=== PATIENT | female | born 1985 | race Caucasian/White ===

== ENCOUNTER 2017-06-11 19:47 | Emergency (ER) | payer BC ==
[2017-06-11 20:20] LABS: #Eosinphils 0.2 thou/uL (0.0-0.7); #Monocytes 0.4 thou/uL (0.11-0.59); #Neutrophils 3.3 thou/uL (1.40-6.50); %Basophils 0.6 % (0.0-1.0); %Eosinophils 2.6 % (0.0-10.0); %Lymphocytes 42.8 % (21.0-51.0); %Monocytes 6.3 % (0.0-10.0); %Neutrophils 47.6 % (42.0-75.0); Hemoglobin 13.5 g/dL (12.0-16.0); Mean Corpuscular HGB CONC 33.8 g/dL (32.0-36.0); Mean Corpuscular Volume 88.9 fl (81.0-99.0); Mean Platelet Volume 7.1 fL (7.4-10.4); Platelet Count 213 thou/uL (130-400); RBC Distribution Width 12.3 % (11.5-14.5); Red Blood Cell (RBC) Count 4.48 mill/uL (4.20-5.40)
--- NOTE | 2017-06-11 20:38 | RAD ---
PORTABLE CHEST: 06/11/17 HISTORY: Chest pain. Lung navarro are clear. Heart and mediastinum appear normal. IMPRESSION: Unremarkable chest. POS: [facility]
[2017-06-11 20:41] LABS: ALT (SGPT) 8 U/L (8-55); AST (SGOT) 13 U/L (5-34); Albumin 4.6 g/dL (3.5-5.0); Alkaline Phosphatase 52 U/L (40-150); Anion Gap 12 mmol/L (10-20); BUN (Urea Nitrogen) 12 mg/dL (7.0-18.7); Bilirubin, Total 0.5 mg/dL (0.2-1.2); CK (CPK) 86 U/L (29-168); Calc. Creatinine Clearance 0 mL/min (70-130); Carbon Dioxide 27 mmol/L (22-29); Chloride 102 mmol/L (98-107); Estimated GFR-MDRD 67; Globulin 3.3 g/dL (2.4-3.5); Glucose 115 mg/dL (70-105); Potassium 3.4 mmol/L (3.5-5.1); Protein, Total 7.9 g/dL (6.0-8.3); Sodium 138 mmol/L (136-145)
[2017-06-11 20:46] LABS: CKMB 0.7 ng/mL (0-6.6); Troponin I Less than 0.010 ng/mL (< 0.028)
[2017-06-11 21:41] LABS: BHCG - Serum Negative (NEGATIVE); Pregs Control Background? CLEAR/WHITE (CLR/WHITE); Pregs Control Bar Appear? YES (CONTROL BAR)
--- NOTE | 2017-07-31 14:23 | EKG ---
Test Reason : CHEST PAIN Blood Pressure : / mmHG Vent. Rate : 078 BPM Atrial Rate : 078 BPM P-R Int : 164 ms QRS Dur : 086 ms QT Int : 374 ms P-R-T Axes : 049 064 038 degrees QTc Int : 426 ms Normal sinus rhythm Normal ECG Confirmed by ANNE RAM, SAMY Fischer ([id number]), school photograph editor ROZINA SHEA ([id number]) on 07/31/2017 2:23:35 PM Referred By: Confirmed By:SAMY RODRÍGUEZ MD
== END 2017-06-11 22:16 | disposition home or self-care (01) ==
LOC: ERS 19:47
DX: R07.89 Other chest pain (principal); G43.909 Migraine, unspecified, not intractable, without status migrainosus; F41.9 Anxiety disorder, unspecified
CPT/HCPCS: 71045; 80053; 82550; 82553; 84484; 84703; 85025; 93005

== ENCOUNTER 2019-06-01 22:11 | Emergency (ER) | payer BC | END 2019-06-01 23:19 | disposition home or self-care (01) | LOC: ERS 22:11 | DX: S61.412A Laceration without foreign body of left hand, initial encounter (principal); G43.909 Migraine, unspecified, not intractable, without status migrainosus; F41.9 Anxiety disorder, unspecified; W26.0XXA Contact with knife, initial encounter | CPT/HCPCS: 12001 ==

== ENCOUNTER 2019-09-20 13:15 | Emergency (ER) | payer BC ==
[2019-09-20] MEDS ORDERED: Lidocaine 1% w/Epinephrine 1:100K 20 ML VIAL ONE (13:28)
[2019-09-20] MEDS ORDERED: Bacitracin 1 PK ONE (13:47)
== END 2019-09-20 14:10 | disposition home or self-care (01) ==
LOC: ERS 13:15
DX: S61.012A Laceration without foreign body of left thumb without damage to nail, initial encounter (principal); G43.909 Migraine, unspecified, not intractable, without status migrainosus; F41.9 Anxiety disorder, unspecified; W26.8XXA Contact with other sharp object(s), not elsewhere classified, initial encounter
CPT/HCPCS: 12001